=== PATIENT | female | born 2000 | race African-American/Black ===

== ENCOUNTER 2021-05-24 19:25 | Emergency (ER) | payer SELFPAY ==
[2021-05-24] MEDS ORDERED: cefTRIAXone\\ROCEPHIN 500 MG VIAL ONE (23:21)
[2021-05-24] MEDS ORDERED: Lidocaine 2% 20 ml MDV ONE (23:21)
[2021-05-24 23:50] LABS: Pregnancy Test - Urine (BHCG) Negative (Negative); Pregu Control Background? CLEAR/WHITE (CLR/WHITE); Pregu Control Bar Appear? YES (CONTROL BAR)
[2021-05-25 11:56] LABS: HIV (1/2) Antibody/Antigen Non-Reactive (NonReactive); HIV 1/2 INDEX 0.11 S/CO (<1.00)
[2021-05-25 13:31] LABS: Syphilis Antibody Nonreactive (Nonreactive); Syphilis Antibody Index 0.05 S/CO (<1.00 Non-Reactive)
[2021-05-27 21:19] LABS: Chlamydia by PCR DETECTED (NotDetected); GC by PCR DETECTED (NotDetected)
== END 2021-05-24 23:58 | disposition home or self-care (01) ==
LOC: MADERS 19:25
DX: Z20.2 Contact with and (suspected) exposure to infections with a predominantly sexual mode of transmission (principal)
CPT/HCPCS: 36415; 81025; 86780; 87389; 87480; 87491; 87510; 87591; 87660; 96372; 99283; J0696